=== PATIENT | female | born 2000 | race Caucasian/White ===

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

== ENCOUNTER 2023-03-01 20:03 | Outpatient (REF) | payer MEDICAID, SELFPAY ==
[2023-03-02 14:19] LABS: BV Int Neg Control Negative (Negative); BV Int Pos Control Positive (Positive)
== END 2023-03-01 20:04 | disposition home or self-care (01) ==
LOC: HO.HHCLNP 20:03
PROVIDERS: Visit Provider Advanced Practice Midwife
DX: Z12.4 Encounter for screening for malignant neoplasm of cervix (principal); N89.8 Other specified noninflammatory disorders of vagina
CPT/HCPCS: 87480; 87510; 87660; 88142

== ENCOUNTER 2023-04-20 09:22 | Outpatient (REF) | payer MEDICAID, SELFPAY ==
[2023-04-20 12:06] LABS: Alanine Aminotransferase 19 U/L (0-31); Albumin Level 4.2 g/dL (3.5-5.0); Alkaline Phosphatase 53 U/L (39-117); Anion Gap 11 (12-20); Aspartate Amino Transferase 22 U/L (5-31); Bilirubin Total 0.3 mg/dL (0.0-1.0); Blood Urea Nitrogen 15 mg/dL (9-16); Calcium 9.3 mg/dL (8.4-10.2); Carbon Dioxide 25 mmol/L (22-29); Chloride 106 mmol/L (96-108); Cholesterol 173 mg/dL (<200); Estimated Glomerular Filt Rate > 60; Glucose Random 94 mg/dL (60-115); HDL Cholesterol 59 mg/dL (>40); LDL Cholesterol Calculated 103 mg/dL (<100); Potassium 3.7 mmol/L (3.3-5.1); Sodium 138 mmol/L (135-145); Triglycerides 58 mg/dL (<150)
[2023-04-20 12:08] LABS: TSH reflex Free T4 1.19 uIU/mL (0.32-4.0)
[2023-04-20 12:09] LABS: Estimated Average Glucose 97 mg/dL
== END 2023-04-20 09:23 | disposition home or self-care (01) ==
LOC: HO.HHCL 09:22
PROVIDERS: Visit Provider Registered Nurse
DX: Z00.00 Encounter for general adult medical examination without abnormal findings (principal); N89.8 Other specified noninflammatory disorders of vagina
CPT/HCPCS: 36415; 80053; 80061; 83036; 84443

== ENCOUNTER 2023-05-11 | Outpatient (REF) | payer MEDICAID, SELFPAY ==
[2023-05-12 12:43] LABS: Influenza A PCR NEGATIVE (Negative); Influenza B PCR NEGATIVE (Negative); Resp Syncy Virus RNA Qual PCR NEGATIVE (Negative); SARS COV2 PCR INHOUSE NEGATIVE (Negative)
== END 2023-05-11 00:01 | disposition home or self-care (01) ==
LOC: HO.HHCLNP
PROVIDERS: Visit Provider Internal Medicine
DX: Z11.52 Encounter for screening for COVID-19 (principal); Z20.822 Contact with and (suspected) exposure to COVID-19; J02.9 Acute pharyngitis, unspecified; R68.89 Other general symptoms and signs
CPT/HCPCS: 0241U; 87070; 87147

== ENCOUNTER 2023-05-28 16:00 | Outpatient (REF) | payer MEDICAID, SELFPAY ==
[2023-06-03 16:56] LABS: CT PCR NOT DETECTED (Not Detect.); NG PCR NOT DETECTED (Not Detect.)
== END 2023-05-28 16:01 | disposition home or self-care (01) ==
LOC: HO.HHCLNP 16:00
PROVIDERS: Visit Provider Emergency Medicine
DX: N76.0 Acute vaginitis (principal)
CPT/HCPCS: 0353U

== ENCOUNTER 2023-05-29 08:33 | Outpatient (REF) | payer MEDICAID, SELFPAY ==
[2023-05-29 13:41] LABS: BV Int Neg Control Negative (Negative); BV Int Pos Control Positive (Positive)
== END 2023-05-29 08:34 | disposition home or self-care (01) ==
LOC: HO.HHCLNP 08:33
PROVIDERS: Visit Provider Emergency Medicine
DX: N76.0 Acute vaginitis (principal)
CPT/HCPCS: 87480; 87510; 87660

== ENCOUNTER 2024-05-02 11:27 | Outpatient (REF) | payer SELFPAY ==
[2024-05-02 13:29] LABS: Cholesterol 156 mg/dL (<200); HDL Cholesterol 48 mg/dL (>40); LDL Cholesterol Calculated 99 mg/dL (<100); Triglycerides 47 mg/dL (<150)
[2024-05-02 13:40] LABS: TSH reflex Free T4 0.65 uIU/mL (0.32-4.0)
[2024-05-02 13:50] LABS: Estimated Average Glucose 111 mg/dL; Hemoglobin A1C 184.2818 umol/L; Hemoglobin A1c % 5.5 % (<6.0)
== END 2024-05-02 11:28 | disposition home or self-care (01) ==
LOC: HO.HHCL 11:27
PROVIDERS: Visit Provider Nurse Practitioner
DX: E66.9 Obesity, unspecified (principal); Z13.1 Encounter for screening for diabetes mellitus; Z13.29 Encounter for screening for other suspected endocrine disorder
CPT/HCPCS: 36415; 80061; 83036; 84443

== ENCOUNTER 2024-07-04 10:00 | Outpatient (REF) | payer MEDICAID, SELFPAY ==
--- NOTE | ~2024-07-04 | XR_ITS ---
EXAMINATION: XR LEFT FOOT XR LEFT ANKLE CLINICAL INFORMATION: Fell yesterday, injury along left anterior ankle, left proximal anterior foot pain. Order states foot injury, fell yesterday, has left proximal anterior foot pain. COMPARISON: None available. TECHNIQUE: 3 views of the left foot and 2 views of the left ankle. FINDINGS: Ankle joint effusion with soft tissue swelling. Radiopaque marker placed by technologist to indicate the area of concern as indicated by the patient lateral to the ankle. The bone mineralization is normal. Joint spaces are preserved. No displaced fracture appreciated. XR/XR foot LT min 3V IMPRESSION: Ankle joint effusion with soft tissue swelling. No displaced fracture of the foot and ankle appreciated. This study was presented today, July 04, 2024, for interpretation. Stat results provided at this time as requested by referring provider. Electronically signed by: Caity Cifuentes MD 07/04/2024 12:07 PM [facility]
--- NOTE | ~2024-07-04 | XR_ITS ---
EXAMINATION: XR LEFT FOOT XR LEFT ANKLE CLINICAL INFORMATION: Fell yesterday, injury along left anterior ankle, left proximal anterior foot pain. Order states foot injury, fell yesterday, has left proximal anterior foot pain. COMPARISON: None available. TECHNIQUE: 3 views of the left foot and 2 views of the left ankle. FINDINGS: Ankle joint effusion with soft tissue swelling. Radiopaque marker placed by technologist to indicate the area of concern as indicated by the patient lateral to the ankle. The bone mineralization is normal. Joint spaces are preserved. No displaced fracture appreciated. XR/XR ankle LT min 3V IMPRESSION: Ankle joint effusion with soft tissue swelling. No displaced fracture of the foot and ankle appreciated. This study was presented today, July 04, 2024, for interpretation. Stat results provided at this time as requested by referring provider. Electronically signed by: Caity Cifuentes MD 07/04/2024 12:07 PM [facility]
== END 2024-07-04 10:01 | disposition home or self-care (01) ==
LOC: HO.HHCX 10:00
PROVIDERS: Visit Provider Emergency Medicine
DX: M25.572 Pain in left ankle and joints of left foot (principal); S99.912A Unspecified injury of left ankle, initial encounter; S99.922A Unspecified injury of left foot, initial encounter
CPT/HCPCS: 73610; 73630

== ENCOUNTER 2024-12-06 17:01 | Outpatient (REF) | payer MEDICAID, SELFPAY ==
[2024-12-06 20:29] LABS: CT PCR NOT DETECTED (Not Detect.); NG PCR NOT DETECTED (Not Detect.)
[2024-12-07 17:18] LABS: Trichomonas vaginalis RNA NOT DETECTED (NOT DETECTED)
== END 2024-12-06 17:02 | disposition home or self-care (01) ==
LOC: HO.LNP 17:01
PROVIDERS: Visit Provider Advanced Practice Midwife
DX: Z11.3 Encounter for screening for infections with a predominantly sexual mode of transmission (principal)
CPT/HCPCS: 87491; 87591; 87661